=== PATIENT | female | born 1970 ===

== ENCOUNTER → 2021-07-04 09:38 | Outpatient (BNVA) | payer BC, SELFPAY | PROVIDERS: PCP Family Medicine; Visit Provider Internal Medicine | DX: Z13.89 Encounter for screening for other disorder (principal) ==

== ENCOUNTER 2021-07-27 07:26 | Outpatient (REF) | payer BC, SELFPAY ==
--- NOTE | ~2021-07-27 | FL_ITS ---
EXAMINATION: XR FLUOROSCOPY WITH IMAGES CLINICAL INFORMATION: M47.812 - Spondylosis without myelopathy or radiculopathy, cervical region COMPARISON: None. TECHNIQUE: Fluoroscopy performed by Dr. Fredis Callahan. Fluoroscopy time: 0.3 minutes DAP: 0.160 Gycm2 Images: 5 FINDINGS: There are spinal needles overlying the right lateral masses cervical spine at C3, C4, and C5, respectively. There is contrast in the paraspinal soft tissues and likely early nerve sheaths. No visible vascular communication. FL/FL guidance in treatment room IMPRESSION: Fluoroscopy for pain management procedure.
== END 2021-07-27 07:27 | disposition home or self-care (01) ==
LOC: HO.RADIR 07:26
PROVIDERS: Visit Provider Internal Medicine
DX: M47.812 Spondylosis without myelopathy or radiculopathy, cervical region (principal)
CPT/HCPCS: 64490; 64491; J1040; J1100; J2795; Q9966

== ENCOUNTER 2022-03-08 12:36 | Outpatient (REF) | payer BC, SELFPAY ==
--- NOTE | 2022-03-08 09:00 | EMG_ITS ---
Please see scanned EMG / Nerve Conduction Report. MTDD
== END 2022-03-08 12:37 | disposition home or self-care (01) ==
LOC: HO.NEURO 12:36
PROVIDERS: Visit Provider Internal Medicine
DX: G24.3 Spasmodic torticollis (principal)
CPT/HCPCS: 95885; 95910